=== PATIENT | male | born 1945 | race Caucasian/White ===

== ENCOUNTER → 2016-06-24 | Outpatient (CLI) | payer OTHER, MEDICARE | LOC: BHFA 11:15 | PROVIDERS: ATTEND Internal Medicine Interventional Cardiology | DX: I48.91 Unspecified atrial fibrillation (principal); I25.10 Atherosclerotic heart disease of native coronary artery without angina pectoris; E78.5 Hyperlipidemia, unspecified; I49.1 Atrial premature depolarization ==

== ENCOUNTER → 2016-07-03 | Outpatient (CLI) | payer OTHER, MEDICARE | LOC: BHFA 14:00 | PROVIDERS: ATTEND Internal Medicine Cardiovascular Disease | DX: I25.10 Atherosclerotic heart disease of native coronary artery without angina pectoris (principal) ==

== ENCOUNTER → 2016-08-09 | Outpatient (CLI) | payer OTHER, MEDICARE | LOC: BMCIMAGING 13:27 | PROVIDERS: ATTEND Internal Medicine Endocrinology, Diabetes & Metabolism | DX: E04.2 Nontoxic multinodular goiter (principal) | CPT/HCPCS: 76536-PO ==

== ENCOUNTER → 2016-08-29 | Outpatient (CLI) | payer OTHER, MEDICARE | LOC: BMCIMAGING 12:56 | PROVIDERS: ATTEND Internal Medicine | DX: Z13.83 Encounter for screening for respiratory disorder NEC (principal) ==

== ENCOUNTER → 2017-07-15 | Outpatient (CLI) | payer OTHER, MEDICARE | LOC: BMCIMAGING 12:12 | PROVIDERS: ATTEND Family Medicine | DX: M25.532 Pain in left wrist (principal); M18.12 Unilateral primary osteoarthritis of first carpometacarpal joint, left hand ==

== ENCOUNTER 2017-08-20 23:58 | Emergency (ER) | payer OTHER, MEDICARE ==
--- NOTE | 2017-08-21 00:56 | CPEKG ---
Heart Rate: 86 RR Interval: 698 P-R Interval: 168 QRSD Interval: 102 QT Interval: 384 QTC Interval: 460 P [place]: 34 QRS Sheffield: 20 T Wave Sheffield: 49 EKG Severity - NORMAL ECG - EKG Impression: SINUS RHYTHM Electronically Signed By: Fady Montiel 21-Aug-2017 06:04:29
--- NOTE | 2017-08-21 01:46 | EDPHY ---
H & P Stated Complaint: EPIGASTRIC ABD PAIN AND VOMITING Time Seen by Provider: 08/21/17 00:10 HPI/ROS: Chief Complaint: Abdominal pain, nausea HPI: 72-year-old male with a history of mast cell activation syndrome is presenting with epigastric abdominal pain which began of about 4 o'clock this afternoon. Patient states that he brought this on by over exerting. He mowed the lawn and did other house chores which are uncharacteristic for him. Patient states that he frequently gets epigastric abdominal pain associated with this. He has been treated in the past at [facility] with trigger point injections with good success. He did have 1 episode of vomiting just prior to arrival. No fevers or chills. No chest pain or shortness of breath. Pain is in the upper abdomen is usual spot. He can pinpoint exact locations which causing the symptoms. Denies any shortness of breath. No rashes. ROS: 10 point Review of Systems is negative except as noted in the HPI. PMH: Mast cell activation syndrome, chronic abdominal pain Social History: No smoking, no alcohol, no recreational drug use Family History: non-contributory Physical Exam: Gen: Awake, Alert, No Distress HEENT: Nose: no rhinorrhea Eyes: PERRLA, EOMI Mouth: Moist mucosa Neck: Supple, no JVD Chest: nontender, lungs clear to auscultation Heart: S1, S2 normal, no murmur Abd: Soft, superficial reproducible tender points in his right upper abdomen and epigastrium, no guarding Back: no CVA tenderness, no midline tenderness Ext: no edema, non-tender Skin: no rash Neuro: CN II-XII intact, Sensation grossly intact, Strength 5/5 in bilateral upper and lower extremities - Personal History Current Tetanus/Diphtheria Vaccine: No Current Tetanus Diphtheria and Acellular Pertussis (TDAP): No Tetanus Vaccine Date: 2001 - Medical/Surgical History Hx Asthma: No Hx Chronic Respiratory Disease: No Hx Diabetes: No Hx Cardiac Disease: No Hx Renal Disease: No Hx Cirrhosis: No Hx Alcoholism: No Hx HIV/AIDS: No Hx Splenectomy or Spleen Trauma: No Other PMH: SALVADOR, PROSTATE SURGERY, A-FIB ABLATION. "MCAS- autoimmune disorder " - Social History Smoking Status: Former smoker Constitutional: Initial Vital Signs Temperature (C) 37.1 C 08/21/17 00:01 Heart Rate 92 08/21/17 00:01 Respiratory Rate 18 08/21/17 00:01 Blood Pressure 153/106 H 08/21/17 00:01 O2 Sat (%) 94 08/21/17 00:01 O2 Delivery Mode Room Air Allergies/Adverse Reactions: epinephrine Allergy (Unknown, Verified 08/21/17 00:04) levofloxacin [From Levaquin] Allergy (Verified 08/21/17 00:04) seasonal allergies Allergy (Mild, Uncoded 08/21/17 00:04) Home Medications: Medication Instructions Recorded Aspirin [Aspirin 81mg (*)] 81 mg PO DAILY 08/12/11 Levothyroxine [Synthroid 50 mcg 50 mcg PO DAILY06 08/12/11 (*)] Diazepam [Valium 5 MG (*)] 5 - 10 mg PO DAILY PRN 09/06/13 Herbals/Supplements -Info Only 1 ea PO DAILY 09/06/13 Lovastatin 20 mg PO DAILY 09/06/13 Metoprolol Tartrate [Lopressor 50 50 mg PO BID 09/06/13 mg (*)] Multivitamins [Multivitamin (*)] 1 tab PO DAILY 09/06/13 Cymbalta 04/09/15 Cromolyn Sodium 100 mg PO QID 08/21/17 Ondansetron Odt [Zofran Odt 4 mg 4 mg PO Q4 PRN #10 tab 08/21/17 (*)] Medical Decision Making - Diagnostics EKG Interpretation: ECG time 12:54 a.m., sinus rhythm with a rate of 86, normal axis, normal intervals, no acute ST or T-wave changes. Impression: Normal ECG. Procedures: Procedure: Trigger-point injection, Indication: Skin was prepped with chlorhexidine swab. A total of 5 mL of lidocaine with bupivacaine was infiltrated into 5 separate sites. The patient experienced relief following the procedure. There are no complications. It was performed by myself. ED Course/Re-evaluation: Patient is improved after trigger-point injections. ECG is normal. LFTs and abdominal labs are normal. Troponin is negative. Symptoms are consistent with his prior abdominal wall pain. Will discharge with follow-up with his primary care physician. - Data Points Laboratory Results: Laboratory Results 08/21/17 01:04 08/21/17 01:04 Sodium 144 mEq/L mEq/L (135-145) Potassium 4.2 mEq/L mEq/L (3.3-5.0) Chloride 106 mEq/L mEq/L (97-110) Carbon Dioxide 24 mEq/l mEq/l (22-31) Anion Gap 14 mEq/L mEq/L (8-16) BUN 18 mg/dL mg/dL (7-23) Creatinine 1.1 mg/dL mg/dL (0.7-1.3) Estimated GFR > 60 Glucose 153 mg/dL H mg/dL (70-100) Calcium 9.9 mg/dL mg/dL (8.5-10.4) Total Bilirubin 0.8 mg/dL mg/dL (0.1-1.4) AST 29 IU/L IU/L (17-59) ALT 48 IU/L IU/L (21-72) Alkaline Phosphatase 56 IU/L IU/L (38-126) Troponin I < 0.012 ng/mL ng/mL (0.000-0.034) Total Protein 7.3 g/dL g/dL (6.3-8.2) Albumin 4.5 g/dL g/dL (3.5-5.0) Departure - Departure Disposition: Home, Routine, Self-Care Clinical Impression: Abdominal wall pain Condition: Good Instructions: Ondansetron (By mouth), Acute Abdominal Pain (ED), Trigger Point Pain (ED) Additional Instructions: Follow up with your primary care physician in 3-4 days for further evaluation. Return to the emergency department for worsening abdominal pain, fevers or chills, nausea, vomiting, or any other concerns. Referrals: Ignacio Maya MD [Primary Care Provider] - As per Instructions Prescriptions: Ondansetron Odt [Zofran Odt 4 mg (*)] 4 mg PO Q4 PRN #10 tab PRN Reason: nausea
[2017-08-21] MEDS ORDERED: ONDANSETRON 4MG PREPACK#2 BTL TAKEHOME ONE (02:23)
[2017-08-21 02:33] VITALS: BP 168/108
== END 2017-08-21 02:33 | disposition home or self-care (01) ==
PROC: 3E023BZ Introduction of Anesthetic Agent into Muscle, Percutaneous Approach (ICD-10-PCS; principal; 2017-08-20)
DX: R10.13 Epigastric pain (principal); Z79.82 Long term (current) use of aspirin; Z87.891 Personal history of nicotine dependence

== ENCOUNTER → 2017-09-11 | Outpatient (CLI) | payer OTHER, MEDICARE | LOC: BMCIMAGING 13:22 | PROVIDERS: ATTEND Internal Medicine Endocrinology, Diabetes & Metabolism | DX: E04.2 Nontoxic multinodular goiter (principal) | CPT/HCPCS: 76536-PO ==